=== PATIENT | male | born 1960 | race Caucasian/White ===

== ENCOUNTER → 2020-05-17 | Day surgery (SDC) | payer OTHER ==
[~2020-05-17] MED LIST: ASPIRIN325 MG PO; CERTAGEN1 EACH PO; CIPRO500 MG PO; DICLOFENAC SODI75 MG PO; FLEXERIL5 MG PO; FLOMAX0.4 MG PO; KEFLEX250 MG PO; METRONIDAZOLE500 MG PO; NORCO 5-325 TA1 EACH PO; PROTONIX 40MG T40 MG PO; ULTRAM50 MG PO; ZOFRAN4 MG PO
[2020-05-17 07:31] LABS: HCT 50.2 % (42.0-52.0); HGB 16.9 g/dl (13.2-18.0); MCH 31.4 pg (25.0-31.0); MCHC 33.7 g/dL (32.0-36.0); MCV 93.3 fL (78.0-100.0); MPV 9.5 fL (6.0-9.5); RBC 5.38 M/uL (4.70-6.00); RDW 12.2 % (11.5-14.0); WBC 6.5 K/uL (4.0-10.5)
[2020-05-17 08:01] LABS: ALBUMIN 3.9 g/dL (3.4-5.0); BILIRUBIN - TOTAL 0.5 mg/dL (0.2-1.0); BUN/CREAT RATIO (CALC) 19.8 RATIO; CREATININE 0.86 mg/dL (0.67-1.17); GLOBULIN (CALCULATION) 3.9 g/dL; POTASSIUM 4.3 mmol/L (3.5-5.1); TOTAL PROTEIN 7.8 g/dL (6.4-8.2)
== END | disposition home or self-care (01) ==
LOC: FAS 06:30
PROVIDERS: Orthopaedic Surgery
DX: S83.232A Complex tear of medial meniscus, current injury, left knee, initial encounter (principal); M67.52 Plica syndrome, left knee; M25.862 Other specified joint disorders, left knee; K21.9 Gastro-esophageal reflux disease without esophagitis; R73.03 Prediabetes; Q21.1 Atrial septal defect; Z88.0 Allergy status to penicillin; Z88.1 Allergy status to other antibiotic agents
CPT/HCPCS: 36415; 80053; J1170; J2250; J2704; J3010; J7120